=== PATIENT | female | born 1960 ===

== ENCOUNTER → 2020-02-12 | Outpatient (CLI) | payer BC ==
[~2020-02-12] MED LIST: ASPI325 PO; ESTRADIOL1 MG PO; FIORICET-COD 51 EACH PO; LEVSOD88 PO; MEDR2.5 PO; OXYACE5T PO; PROM25 PO; SYNTHROID; TOLT2
== END | disposition home or self-care (01) ==
LOC: PLD 07:42 → LAB SHORT 07:42
DX: L57.0 Actinic keratosis (principal); L85.9 Epidermal thickening, unspecified; L83 Acanthosis nigricans
CPT/HCPCS: 88305; 88312

== ENCOUNTER 2020-09-03 09:15 | Day surgery (SDC) | payer BC ==
[~2020-09-03] VITALS: Ht 162.6 cm; Wt 74.9 kg
[2020-09-03] MEDS ORDERED: ASPI325EC (09:43)
== END 2020-09-03 11:25 | disposition home or self-care (01) ==
LOC: ORSCSDS 09:15
PROVIDERS: Internal Medicine Gastroenterology
PROC: 0DJD8ZZ Inspection of Lower Intestinal Tract, Via Natural or Artificial Opening Endoscopic (ICD-10-PCS; principal; 2020-09-03 10:30)
DX: Z12.11 Encounter for screening for malignant neoplasm of colon (principal); Z86.010 Personal history of colon polyps; K57.30 Diverticulosis of large intestine without perforation or abscess without bleeding; Z79.899 Other long term (current) drug therapy
CPT/HCPCS: J2704; J7120

== ENCOUNTER → 2021-02-05 | Outpatient (CLI) | payer BC ==
[~2021-02-05] MED LIST changes: +ASPI325EC
== END ==
LOC: LAB 14:19 → LAB SHORT 14:19
DX: N39.0 Urinary tract infection, site not specified (principal)
CPT/HCPCS: 87077; 87086; 87186

== ENCOUNTER → 2022-03-26 | Outpatient (CLI) | payer BC | END | disposition home or self-care (01) | LOC: LAB 19:06 → LAB SHORT 19:06 | DX: N39.0 Urinary tract infection, site not specified (principal) | CPT/HCPCS: 87086 ==

== ENCOUNTER → 2023-12-13 | Outpatient (CLI) | payer OTHER | LOC: LAB SHORT 16:24 → LAB 16:24 | DX: R30.0 Dysuria (principal) | CPT/HCPCS: 87077; 87086; 87186 ==